=== PATIENT | female | born 2000 | race Caucasian/White ===

== ENCOUNTER 2020-12-14 09:59 | Emergency (ER) | payer OTHER | END 2020-12-14 11:45 | disposition home or self-care (01) | LOC: ERS 09:59 | DX: J02.0 Streptococcal pharyngitis (principal); F17.290 Nicotine dependence, other tobacco product, uncomplicated | CPT/HCPCS: 87081; 87430; 99283 ==

== ENCOUNTER 2021-02-12 11:42 | Emergency (ER) | payer OTHER | END 2021-02-12 13:19 | disposition home or self-care (01) | LOC: ERS 11:42 | DX: K04.7 Periapical abscess without sinus (principal); F17.290 Nicotine dependence, other tobacco product, uncomplicated | CPT/HCPCS: 99282 ==